=== PATIENT | male | born 1950 | race Caucasian/White ===

== ENCOUNTER 2018-08-23 20:35 | Inpatient (IN) | payer BC, MEDICARE, OTHER ==
[2018-08-23 21:03] LABS: Hemoglobin 7.1 g/dL (14.0-18.0); Mean Corpuscular HGB CONC 33.3 g/dL (32.0-36.0); Mean Corpuscular Hemoglobin 33.8 pg (27.0-31.0); Mean Platelet Volume 8.2 fL (7.4-10.4); Platelet Count 314 thou/uL (130-400); RBC Distribution Width 13.7 % (11.5-14.5); Red Blood Cell (RBC) Count 2.11 mill/uL (4.70-6.10); White Blood Cell (WBC) Count 16.6 thou/uL (4.8-10.8)
[2018-08-23 21:17] LABS: ALT (SGPT) 30 U/L (8-55); AST (SGOT) 21 U/L (5-34); Albumin 3.4 g/dL (3.4-4.8); Alkaline Phosphatase 141 U/L (40-150); Anion Gap 17 mmol/L (10-20); BUN (Urea Nitrogen) 76 mg/dL (8.4-25.7); Bilirubin, Total 0.3 mg/dL (0.2-1.2); Calc. Creatinine Clearance 0 mL/min (70-130); Calcium 9.4 mg/dL (7.8-10.44); Carbon Dioxide 23 mmol/L (23-31); Chloride 103 mmol/L (98-107); Estimated GFR-MDRD 20; Glucose 78 mg/dL (80-115); Potassium 4.5 mmol/L (3.5-5.1); Protein, Total 6.4 g/dL (5.8-8.1); Sodium 138 mmol/L (136-145)
[2018-08-23 21:25] LABS: Band 1 % (5-11); Hypochromia SLIGHT = 6-15 cells (100X) (0-5/hpf); Lymphocytes 11 % (21-51); MDiff Complete? YES; Macrocytosis SLIGHT = 6-15 cells (100X) (0-5/hpf); Monocytes 7 % (0-10); Neutrophil 81 % (42-75); Nucleated RBC 1 % (0); Platelet Morphology Comment Appears Adequate
[2018-08-23 21:54] LABS: INR-International Normal Ratio 1.1; PTT 25.7 SEC (22.9-36.1)
[2018-08-23 22:07] LABS: Iron 106 ug/dL (65-175); Iron Binding Capacity, Total 366 mcg/dL (261-462)
[2018-08-23] MEDS ORDERED: Ondansetron PF 4 MG/2 ML Vial IVP PRN (23:35)
[2018-08-23] MEDS ORDERED: Zolpidem Tartrate 5 MG TAB PO PRN (23:35)
[2018-08-23] MEDS ORDERED: HumaLOG 300 UNITS/3 ML VIAL SC PRN (23:44)
[2018-08-23] MEDS ORDERED: Dextrose 50% Abboject 50 ML SYRINGE SLOW IVP PRN (23:44)
[2018-08-23] MEDS ORDERED: Dextrose 5% in Water 1,000 ML IV PRN (23:44)
[2018-08-24] MEDS: Pantoprazole 80 MG in Sodium Chloride 0.9% 100 ML IVP SCH ×2 (00:17→22:03)
[2018-08-24 01:22] LABS: Hemoglobin 8.2 g/dL (14.0-18.0)
--- NOTE | 2018-08-24 01:50 | CON ---
DATE OF CONSULTATION: 08/23/2018 CHIEF COMPLAINT: Weakness, dizziness, blood in the stool. HISTORY OF PRESENT ILLNESS: Mr. Goldsmith is a 68-year-old man, who woke up early Monday morning and had initially brown liquidy stool and then multiple red to black bloody stools. He had no abdominal pain with that. The next day, Monday he had no bowel movements. Monday, he had 2 black bloody stools and today he has had none. However, today he started feeling more dizzy and lightheaded and he came to the emergency room for further care. He is found to have hypotension. He was given IV fluids and is being transfused. He has had no chest pain or shortness of breath. Weight has been stable. He had a GI bleed from bleeding ulcer around 6 years ago. He had an EGD and then 2 months later he had another EGD for repeat bleeding. He had a colonoscopy 2 or 3 years ago with a few polyps removed. PAST MEDICAL HISTORY: Hypertension, hyperlipidemia, diabetes mellitus, peptic ulcer disease, coronary artery disease, gout. PAST SURGICAL HISTORY: Coronary artery bypass graft and upper and lower endoscopies. FAMILY HISTORY: Negative for GI malignancy. SOCIAL HISTORY: No alcohol, tobacco, or drugs. ALLERGIES: NO KNOWN DRUG ALLERGIES. HOME MEDICATIONS: 1. Levemir. 2. NovoLog. 3. Tramadol. 4. Atorvastatin. 5. Furosemide. 6. Losartan. 7. Omeprazole. 8. Iron. 9. Metoprolol. 10. Niacin. 11. Multiple vitamin. 12. Aspirin 325 mg daily. REVIEW OF SYSTEMS: Negative x10 systems reviewed except as stated in the history of present illness. PHYSICAL EXAMINATION: VITAL SIGNS: Blood pressure 104/50s. Pulses in the 70s. He is afebrile. GENERAL: He is pale, in no acute distress. Alert and oriented x3. He is obese. HEENT: Eyes have no scleral icterus. Oropharynx is clear without lesions. No cervical or supraclavicular lymphadenopathy. LUNGS: Clear to auscultation bilaterally. HEART: Regular rate and rhythm without murmur. ABDOMEN: Soft, nontender, and nondistended. Bowel sounds are present. EXTREMITIES: Trace lower extremity edema. LABORATORY DATA: White blood cell count 16.6, hemoglobin 7.1, MCV 102, platelets 314. INR 1.1. Creatinine 3.17 with a BUN of 76. Iron 106, TIBC 366, ferritin 92, bilirubin 0.3, AST 21, ALT 30, alkaline phosphatase 141, albumin 3.4. IMPRESSION: 1. Macrocytic anemia. This is associated with black stools and melena by rectal exam in the ER now. He has a history of a peptic ulcer bleed in the past. He has been on omeprazole 40 mg daily and I would not expect him to form a new ulcer on that; however, still the presentation is most consistent with upper gastrointestinal bleed. 2. Anemia of acute blood loss. 3. Acute renal failure. RECOMMENDATIONS: 1. IV fluids and blood transfusion. 2. Follow trend of the creatinine. 3. We will schedule for upper endoscopy tomorrow. 4. Proton pump inhibitor drip. Job ID: [id number]
--- NOTE | 2018-08-24 02:34 | PDOC.EVN ---
Event Note - Event Note Event Note: H&P #[id number]
--- NOTE | 2018-08-24 02:56 | HP ---
CHIEF COMPLAINT: Weakness and GI bleed. HISTORY OF PRESENT ILLNESS: This is a 68-year-old male, who woke up in the morning complaining of black tarry stools. States that he has had an incident in the past approximately six or seven years ago, had an EGD two months prior as well at that time and then another colonoscopy two to three years ago with polyps removed. The patient states the stools turned significantly black and tarry. The patient of note was found to have a hemoglobin at the point of time of evaluation in the ER of 7.1, and GI evaluation had been completed at that time. The plan was for the patient to be transfused 1 unit of blood. The patient stated that he felt weak, otherwise he did not have any other issues or complaints. The patient did state that he has had a CABG done in the past, hyperlipidemia, hypertension, diabetes mellitus type 2. 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 He also has a GI doctor in [place]. The patient otherwise states that he feels well after the blood transfusion. Denies any nausea, vomiting, diarrhea, constipation, chest pain, fevers, or shortness of breath. The patient is seen and examined in the ER. No associated symptoms. No alleviating or aggravating factors. Daughter in-law and at bedside. All questions were answered. ALLERGIES: NO KNOWN DRUG ALLERGIES. HOME MEDICATIONS: See MAR. FAMILY HISTORY: Positive for hypertension and diabetes mellitus. PAST MEDICAL HISTORY: Positive for hypertension, diabetes, hyperlipidemia, peptic ulcer disease, coronary artery disease, gout, CABG. SOCIAL HISTORY: Nondrinker, nonsmoker. REVIEW OF SYSTEMS: All systems reviewed. Pertinent positives in HPI, otherwise negative. PHYSICAL EXAMINATION: VITAL SIGNS: Blood pressure was 128/88, respiratory rate of 18, O2 saturations 98% on room air, temperature of 98. GENERAL: The patient is lying in bed, obese, no acute distress. HEENT: Pupils equal, round, and reactive to light and accommodation. Extraocular muscles intact. Oral cavity moist and pink. CARDIOVASCULAR: Regular rate and rhythm. S1, S2. No murmurs, rubs, or gallops appreciated. RESPIRATORY: Clear to auscultation bilaterally. No increase in AP diameter. No respiratory distress. Abdomen: Rotund. Positive bowel sounds. Soft, nontender, nondistended. EXTREMITIES: Trace pitting edema. 2+ peripheral pulses. No cyanosis or clubbing noted. NEUROLOGICAL: Cranial nerves 2 through 12 intact. Oral cavity moist and pink. LABORATORY DATA: CBC; WBC count of 16, hemoglobin of 7.1. PT and INR normal. Chemistry is normal except for a creatinine of 3.17 and a BUN of 76. ASSESSMENT: 1. Gastrointestinal bleed. 2. Hypertension. 3. Hyperlipidemia. 4. Acute kidney injury on chronic kidney disease versus chronic kidney disease. 5. Diabetes mellitus type 2. 6. Coronary artery disease. PLAN: At this point in time, we will admit the patient to Internal Medicine Team, consults to Cardiology, GI as well as Nephrology. We will likely continue with aspirin given his significant coronary artery disease, however, we will not further anticoagulate the patient at this point in time. We will use SCDs for GI and DVT prophylaxis. We will provide the patient 1 unit of blood. Start Zosyn for the elevated WBC count with concern for possible infectious process going on in the abdomen. Blood cultures have been ordered and pending. The patient wishes to remain a full code. We will await subspecialist's input at this point in time. Case and plan were discussed with the patient, his , as well as his daughter in-law at length. They understand and agree with this plan. Job ID: [id number]
[2018-08-24 03:09] LABS: Mean Corpuscular HGB CONC 33.2 g/dL (32.0-36.0); Mean Corpuscular Hemoglobin 33.1 pg (27.0-31.0); Mean Corpuscular Volume 99.5 fL (78.0-98.0); Mean Platelet Volume 8.1 fL (7.4-10.4); Platelet Count 283 thou/uL (130-400); RBC Distribution Width 15.1 % (11.5-14.5); Red Blood Cell (RBC) Count 2.13 mill/uL (4.70-6.10); White Blood Cell (WBC) Count 16.4 thou/uL (4.8-10.8)
[2018-08-24 03:25] LABS: Band 1 % (5-11); Hypochromia SLIGHT = 6-15 cells (100X) (0-5/hpf); Lymphocytes 15 % (21-51); MDiff Complete? YES; Monocytes 5 % (0-10); Neutrophil 79 % (42-75); Platelet Morphology Comment Appears Adequate; Polychromasia SLIGHT = 2-3 cells (100X) (0-2/hpf)
[2018-08-24 03:43] LABS: Anion Gap 14 mmol/L (10-20); BUN (Urea Nitrogen) 78 mg/dL (8.4-25.7); Calc. Creatinine Clearance 0 mL/min (70-130); Calcium 9.2 mg/dL (7.8-10.44); Carbon Dioxide 24 mmol/L (23-31); Chloride 104 mmol/L (98-107); Estimated GFR-MDRD 20; Glucose 104 mg/dL (80-115); Potassium 4.7 mmol/L (3.5-5.1); Sodium 137 mmol/L (136-145)
[2018-08-24] MEDS: Piperacillin/Tazobactam 3.375 GM in Sodium Chloride 0.9% 100 ML IVPB SCH ×4 (05:05→22:19)
[2018-08-24] MEDS ORDERED: Aspirin 81 mg Enteric Coated Tablet PO SCH (09:00)
[2018-08-24 10:18] LABS: Hemoglobin 7.6 g/dL (14.0-18.0)
--- NOTE | 2018-08-24 11:23 | CT ---
CT OF THE ABDOMEN AND PELVIS WITHOUT CONTRAST: Date: 08/24/18 COMPARISON: None. HISTORY: Rectal bleeding since 7:00 Monday morning. Associated dizziness and diffuse abdominal pain. TECHNIQUE: Multiple contiguous axial images were obtained in a CT of the abdomen and pelvis without contrast. Co tylor reformats were performed. FINDINGS: The liver, gallbladder, kidneys, adrenal glands, spleen, and pancreas are unremarkable. No free air, free fluid, or stranding changes are seen in the abdomen or pelvis. Atherosclerotic calcifications are seen in the aorta. No abdominal or pelvic lymphadenopathy seen. Th e large and small bowel are unremarkable. The appendix is normal. There is stranding in the lower abdominal wall, likely from recent injections. Degenerative changes a re seen in the spine. The visualized inferior thorax is unremarkable. IMPRESSION: No evidence of acute intra-abdominal/pelvic abnormality. POS: [facility]
[2018-08-24] MEDS: Sodium Chloride 0.9% 1,000 ML IV SCH ×2 (11:30→22:03)
[2018-08-24] MEDS ORDERED: ePHEDrine 50 MG/ML VIAL ONE (12:39)
[2018-08-24] MEDS ORDERED: PROPOFOL 200 MG/20 ML VIAL ONE (12:39)
[2018-08-24 13:28] LABS: Hemoglobin 7.4 g/dL (14.0-18.0)
--- NOTE | 2018-08-24 14:36 | PDOC.PN ---
- Subjective Encounter Start Date: 08/24/18 Encounter Start Time: 14:35 Subjective: feels weak,1 red BM this morning.no abd pain/vomiting - Objective Resuscitation Status - Order Detail: 08/23/18 23:35 Resuscitation Status Routine Resuscitation Status: FULL: Full Resuscitation Discussed with: patient REAGAN Reviewed: Yes Result Diagrams: 08/24/18 13:15 08/24/18 02:57 Additional Labs: Accuchecks 08/24/18 09:02 POC Glucose 148 H Laboratory Tests 08/23/18 08/24/18 08/24/18 20:46 01:14 02:57 Hgb 7.1 L 8.2 L 7.0 L 08/24/18 08/24/18 10:07 13:15 Hgb 7.6 L 7.4 L Radiology Reviewed by me: Yes (CT A/P-no acute changes) Phys Exam - Physical Examination Constitutional: NAD pale,uncomfortable HEENT: PERRLA, moist MMs, sclera anicteric, oral pharynx no lesions Neck: no nodes, no JVD, supple, full ROM Respiratory: no wheezing, no rales, no rhonchi Cardiovascular: RRR, no significant murmur Gastrointestinal: soft, non-tender, no distention, positive bowel sounds Musculoskeletal: no edema, pulses present Neurological: non-focal, normal sensation, moves all 4 limbs Psychiatric: normal affect, A&O x 3 Dx/Plan (1) GI bleed Code(s): K92.2 - GASTROINTESTINAL HEMORRHAGE, UNSPECIFIED Status: Acute (2) Blood loss anemia Code(s): D50.0 - IRON DEFICIENCY ANEMIA SECONDARY TO BLOOD LOSS (CHRONIC) Status: Acute (3) TIERNEY (acute kidney injury) Code(s): N17.9 - ACUTE KIDNEY FAILURE, UNSPECIFIED Status: Acute (4) HTN (hypertension) Code(s): I10 - ESSENTIAL (PRIMARY) HYPERTENSION Status: Chronic (5) DM2 (diabetes mellitus, type 2) Status: Chronic - Plan DVT proph w/SCDs serail H/H.s/p PRBC transfusion.EGD today.PPI drip. -: start IVF.monitor vitals.Ok to tele insted of IMCU.HD stable -: likely UGIB due to ASA use.stopped. -: Ct ruled out ac diveticulitis/abdominal Infection.empiric zosyn.trend WBC -: no h/o CKD.TIERNEY likely d/y sever dehydration & hypovolemia.IVF.monitor * .nephrology consulted. avoid nephrotoxins * am labs Review of Systems - Review of Systems Constitutional: weakness. negative: fever, chills, sweats, malaise, other Respiratory: negative: Cough, Dry, Shortness of Breath, Hemoptysis, SOB with Excertion, Pleuritic Pain, Sputum, Wheezing Cardiovascular: negative: chest pain, palpitations, orthopnea, paroxysmal nocturnal dyspnea, edema, light headedness, other Gastrointestinal: Melena, Hematochezia. negative: Nausea, Vomiting, Abdominal Pain, Diarrhea, Constipation, Other Genitourinary: negative: Dysuria, Frequency, Incontinence, Hematuria, Retention , Other Musculoskeletal: negative: Neck Pain, Shoulder Pain, Arm Pain, Back Pain, Hand Pain, Leg Pain, Foot Pain, Other Neurological: negative: Weakness, Numbness, Incoordination, Change in Speech, Confusion, Seizures, Other - Medications/Allergies Allergies/Adverse Reactions: Allergies Allergy/AdvReac Type Severity Reaction Status Date / Time No Known Drug Allergies Allergy Verified 08/23/18 23:03 Medications: Current Medications Atorvastatin Calcium (Lipitor) 40 mg PO HS [facility] Dextrose/Water (Dextrose 50%) 25 gm SLOW IVP PRN PRN PRN Reason: Hypoglycemia Glucagon (Glucagon) 1 mg IM PRN PRN PRN Reason: Hypoglycemia Pantoprazole Sodium 80 mg/ (Sodium Chloride) 100 mls @ 10 mls/hr IVP INF [facility] Last Admin: 08/24/18 00:17 Dose: 100 mls Dextrose/Water (D5w) 1,000 mls @ 0 mls/hr IV .Q0M PRN PRN Reason: Hypoglycemia Piperacillin Sod/Tazobactam (Sod 3.375 gm/ Sodium Chloride) 100 mls @ 200 mls/ hr IVPB Q8H [facility] Last Admin: 08/24/18 10:00 Dose: 100 mls Sodium Chloride (Normal Saline 0.9%) 1,000 mls @ 100 mls/hr IV .Q10H [facility] Last Admin: 08/24/18 11:30 Dose: 1,000 mls Insulin Human Lispro (Humalog) 0 units SC .MILD SLIDING SCALE PRN PRN Reason: Mild Correctional Scale Insulin Human Lispro (Humalog) 0 units SC .BEDTIME SLIDING SC PRN PRN Reason: Bedtime Correctional Scale Ondansetron HCl (Zofran) 4 mg IVP Q6H PRN PRN Reason: Nausea/Vomiting Sodium Chloride (Flush - Normal Saline) 10 ml IVF Q12HR PRN PRN Reason: Saline Flush Zolpidem Tartrate (Ambien) 5 mg PO HSPRN PRN PRN Reason: Insomnia
[2018-08-24] MEDS ORDERED: Ketamine 50 MG/ML (10ML VIAL) ONE (16:08)
[2018-08-24] MEDS ORDERED: Ondansetron HCl/PF 4 MG/2 ML Vial IVP PRN (16:45)
[2018-08-24] MEDS ORDERED: Promethazine HCl 25 MG/ML VIAL IM PRN (16:45)
[2018-08-24] MEDS ORDERED: Promethazine HCl 25 MG/ML VIAL SLOW IVP PRN (16:45)
--- NOTE | 2018-08-24 19:29 | OP ---
DATE OF PROCEDURE: 08/24/2018 PROCEDURES PERFORMED: Esophagogastroduodenoscopy with biopsy and control of hemorrhage. PREOPERATIVE DIAGNOSES: Gastrointestinal bleed and severe anemia of acute blood loss. DESCRIPTION OF PROCEDURE: Informed consent was obtained from the patient. He was sedated with total intravenous anesthesia. The bite block was placed and the endoscope was advanced easily to the second portion of the duodenum and retroflexion was performed in the stomach. The esophagus was normal. The GE junction was normal. The stomach had a 5 mm erosion in the proximal antrum. This did not appear to be an obvious bleeding source; however, there was a red spot in the base of it. I cauterized this with a 7-Belizean Gold probe at 20 galicia with good hemostasis confirmed. Biopsies were obtained from the stomach to rule out H pylori in light of the gastric erosion and past history of peptic ulcer disease. The pylorus and first and second portions of the duodenum were normal. IMPRESSION: 1. Gastric antral erosion, measuring 5 mm. This was shallow, but it was somewhat protruding underneath and had a small red spot in the center and this was cauterized with a 10-Belize[place] Gold probe with good hemostasis confirmed. I am certainly not convinced this is the definite bleeding source. Gastric biopsies were obtained to rule out H pylori. 2. Otherwise normal EGD. RECOMMENDATIONS: 1. Await histopathology. 2. Colonoscopy tomorrow. Job ID: [id number]
[2018-08-24] MEDS ORDERED: Insulin Glargine 10 UNITS in Pre-Filled Syringe 1 EACH SC SCH (21:00)
[2018-08-24] MEDS: Atorvastatin Calcium 40 MG TAB PO SCH (22:03)
[2018-08-24] MEDS: HumaLOG 300 UNITS/3 ML VIAL SC PRN (22:59)
[2018-08-25 01:39] LABS: Bilirubin Negative (Negative); Blood, Urine Trace (Negative); Clarity CLEAR (Clear); Glucose, Urine (Dipstick) Negative (Negative); Leukocyte Negative (Negative); Nitrite Negative (Negative); Protein, Urine (Dipstick) 30 mg/dL (Neg-Trace); Specific Gravity, Urine 1.016 (1.002-1.036); Urobilinogen 0.2 mg/dL (0.2-1.0)
[2018-08-25 01:42] LABS: Bacteria/HPF None Seen HPF (None Seen); Hyaline Casts/LPF 4-6 HYALINE CAST LPF (0-3 Hyaline); Pathc Cast-AUWi Flag 0.81 (0-2.49); RBC/HPF 0-3 HPF (0-3)
[2018-08-25 01:43] LABS: Oval Fat Bodies/HPF None Seen HPF (None Seen); Renal Epithelial None Seen HPF (0-3); Sperm/HPF None Seen HPF (None Seen); Transitional Epithelial NONE SEEN HPF (0-3); Trichomonas/HPF None Seen HPF (None Seen); Yeast-All Forms None Seen HPF (None Seen)
[2018-08-25 01:44] LABS: Urine Culture Reflex No No
[2018-08-25] MEDS: Piperacillin/Tazobactam 3.375 GM in Sodium Chloride 0.9% 100 ML IVPB SCH ×4 (04:10→21:36)
[2018-08-25] MEDS ORDERED: GoLYTELY 4,000 ml Bottle PO SCH ×2 (06:30→12:30)
[2018-08-25] MEDS: Pantoprazole 80 MG in Sodium Chloride 0.9% 100 ML IVP SCH (07:36)
[2018-08-25 11:16] VITALS: BMI 45.9
[2018-08-25] MEDS ORDERED: Cyclobenzaprine 10 MG TAB PO SCH (12:15)
[2018-08-25 12:16] LABS: Hemoglobin 7.8 g/dL (14.0-18.0)
[2018-08-25 12:30] LABS: Anion Gap 23 mmol/L (10-20); BUN (Urea Nitrogen) 49 mg/dL (8.4-25.7); Calc. Creatinine Clearance 54 mL/min (70-130); Carbon Dioxide 16 mmol/L (23-31); Chloride 102 mmol/L (98-107); Estimated GFR-MDRD 26; Glucose 394 mg/dL (80-115); Potassium 4.6 mmol/L (3.5-5.1); Sodium 136 mmol/L (136-145)
[2018-08-25] MEDS ORDERED: HumaLOG 300 UNITS/3 ML VIAL SC SCH ×2 (12:30→17:45)
[2018-08-25] MEDS: traMADol HCl 50 MG TAB PO PRN ×2 (12:42→21:46)
[2018-08-25] MEDS: Lidocaine 5% Patch TD SCH (12:44)
[2018-08-25] MEDS: Sodium Chloride 0.9% 1,000 ML IV SCH (12:49)
[2018-08-25] MEDS ORDERED: Morphine 2 MG/ML SYRINGE SLOW IVP SCH (13:45)
--- NOTE | 2018-08-25 14:28 | PDOC.PN ---
- Subjective Encounter Start Date: 08/25/18 Encounter Start Time: 14:26 Subjective: c/o severe arm cramps in left arm from elbow down -: no SOB/CP -: LOOSE NON BLODDY STOOLS ON GOLYTLE - Objective Resuscitation Status - Order Detail: 08/23/18 23:35 Resuscitation Status Routine Resuscitation Status: FULL: Full Resuscitation Discussed with: patient REAGAN Reviewed: Yes Vital Signs & Weight: Vital Signs (12 hours) Temp Pulse Resp BP BP Pulse Ox 08/25/18 13:42 163/72 H 08/25/18 12:51 97.8 F 109 H 18 151/65 H 99 08/25/18 08:08 97.1 F L 96 18 138/63 100 08/25/18 04:00 97.7 F 99 16 127/56 L 96 08/25/18 03:38 98 Weight Admit Weight 299 lb 8 oz Weight 302 lb 1.6 oz I&O: 08/24/18 08/25/18 08/26/18 06:59 06:59 06:59 Intake Total 1120 Output Total 1375 Balance -255 Result Diagrams: 08/25/18 12:06 08/25/18 12:06 Additional Labs: Accuchecks 08/25/18 08/25/18 08/24/18 10:57 05:59 20:39 POC Glucose 356 H 303 H 248 H Radiology Reviewed by me: Yes (EGD-mild antral erosions.no overt bleed) Phys Exam - Physical Examination sitting up in bed w arm on table w pillow,umcomfortable HEENT: PERRLA, moist MMs, sclera anicteric, oral pharynx no lesions Neck: no nodes, no JVD, supple, full ROM Respiratory: no wheezing, no rales, no rhonchi Cardiovascular: RRR, no significant murmur Gastrointestinal: soft, non-tender, no distention, positive bowel sounds Musculoskeletal: no edema, pulses present no swelling,erythema or warmth to left arm. Neurological: non-focal, normal sensation, moves all 4 limbs Dx/Plan (1) GI bleed Code(s): K92.2 - GASTROINTESTINAL HEMORRHAGE, UNSPECIFIED Status: Acute (2) Blood loss anemia Code(s): D50.0 - IRON DEFICIENCY ANEMIA SECONDARY TO BLOOD LOSS (CHRONIC) Status: Acute Comment: H/H stable (3) TIERNEY (acute kidney injury) Code(s): N17.9 - ACUTE KIDNEY FAILURE, UNSPECIFIED Status: Acute (4) Metabolic acidosis Code(s): E87.2 - ACIDOSIS Status: Acute (5) HTN (hypertension) Code(s): I10 - ESSENTIAL (PRIMARY) HYPERTENSION Status: Chronic (6) DM2 (diabetes mellitus, type 2) Status: Chronic - Plan plan discussed w/ family, DVT proph w/SCDs EGD unremarakble.Colonoscopy today -: add prn tramadol and flexeril for pain w Lidocaine patch.likely spasm -: Hd stable -: monitor renal Fx -: change IVF to add Bicarb as now has metabolic acidosis.ISS w accuchecks * . Review of Systems - Review of Systems Constitutional: weakness, malaise. negative: fever, chills, sweats, other ENT: negative: Ear Pain, Ear Discharge, Nose Pain, Nose Discharge, Nose Congestion, Mouth Pain, Mouth Swelling, Throat Pain, Throat Swelling, Other Respiratory: negative: Cough, Dry, Shortness of Breath, Hemoptysis, SOB with Excertion, Pleuritic Pain, Sputum, Wheezing Cardiovascular: negative: chest pain, palpitations, orthopnea, paroxysmal nocturnal dyspnea, edema, light headedness, other Gastrointestinal: negative: Nausea, Vomiting, Abdominal Pain, Diarrhea, Constipation, Melena, Hematochezia, Other Genitourinary: negative: Dysuria, Frequency, Incontinence, Hematuria, Retention , Other Musculoskeletal: Hand Pain. negative: Neck Pain, Shoulder Pain, Arm Pain, Back Pain, Leg Pain, Foot Pain, Other Neurological: negative: Weakness, Numbness, Incoordination, Change in Speech, Confusion, Seizures, Other - Medications/Allergies Allergies/Adverse Reactions: Allergies Allergy/AdvReac Type Severity Reaction Status Date / Time No Known Drug Allergies Allergy Verified 08/23/18 23:03 Medications: Current Medications Atorvastatin Calcium (Lipitor) 40 mg PO HS [facility] Last Admin: 08/24/18 22:03 Dose: 40 mg Cyclobenzaprine HCl (Flexeril) 10 mg PO TID PRN PRN Reason: Muscle Spasm Dextrose/Water (Dextrose 50%) 25 gm SLOW IVP PRN PRN PRN Reason: Hypoglycemia Glucagon (Glucagon) 1 mg IM PRN PRN PRN Reason: Hypoglycemia Pantoprazole Sodium 80 mg/ (Sodium Chloride) 100 mls @ 10 mls/hr IVP INF [facility] Last Admin: 08/25/18 07:36 Dose: 100 mls Dextrose/Water (D5w) 1,000 mls @ 0 mls/hr IV .Q0M PRN PRN Reason: Hypoglycemia Piperacillin Sod/Tazobactam (Sod 3.375 gm/ Sodium Chloride) 100 mls @ 200 mls/ hr IVPB Q8H [facility] Last Admin: 08/25/18 12:42 Dose: 100 mls Sodium Bicarbonate 50 meq/ (Sodium Chloride) 1,050 mls @ 75 mls/hr IV .Q14H [facility] Insulin Human Lispro (Humalog) 0 units SC .MILD SLIDING SCALE PRN PRN Reason: Mild Correctional Scale Insulin Human Lispro (Humalog) 0 units SC .BEDTIME SLIDING SC PRN PRN Reason: Bedtime Correctional Scale Last Admin: 08/24/18 22:59 Dose: 2 unit Lidocaine (Lidoderm 5% Patch) 1 patch TD 1300 [facility] Last Admin: 08/25/18 12:44 Dose: 1 patch Miscellaneous Medication (Lidocaine Patch Removal) 1 each TOP 0100 [facility] Morphine Sulfate (Morphine) 2 mg SLOW IVP NOW [facility] Stop: 08/25/18 15:00 Last Admin: 08/25/18 13:45 Dose: 2 mg Ondansetron HCl (Zofran) 4 mg IVP Q6H PRN PRN Reason: Nausea/Vomiting Polyethylene Glycol/Electrolytes (Golytely) 2,000 ml PO NOW [facility] Stop: 08/25/18 18:00 Last Admin: 08/25/18 13:33 Dose: 2,000 ml Sodium Chloride (Flush - Normal Saline) 10 ml IVF Q12HR PRN PRN Reason: Saline Flush Tramadol HCl (Ultram) 100 mg PO Q8H PRN PRN Reason: Moderate to Severe Pain (6-10) Last Admin: 08/25/18 12:42 Dose: 100 mg Zolpidem Tartrate (Ambien) 5 mg PO HSPRN PRN PRN Reason: Insomnia
[2018-08-25] MEDS ORDERED: ePHEDrine 50 MG/ML VIAL ONE (14:32)
[2018-08-25] MEDS ORDERED: PROPOFOL 200 MG/20 ML VIAL ONE (14:32)
[2018-08-25] MEDS ORDERED: PHENYLEPHRINE-NS 100 MCG/ML 10 ML SYRINGE ONE (14:32)
[2018-08-25] MEDS: Sodium Bicarbonate 50 MEQ in Sodium Chloride 0.45% 1,000 ML IV SCH ×2 (15:12→21:36)
--- NOTE | 2018-08-25 15:22 | PRG ---
DATE OF SERVICE: 08/25/2018 SUBJECTIVE: Patient was seen and examined at bedside and overnight events noted. Patient denies any shortness of breath or chest pain or palpitation. No history of nausea or vomiting or diarrhea or fever or chills or cramps. OBJECTIVE: GENERAL: This is a well-built male, in no apparent distress. VITAL SIGNS: Temperature 97.9, heart rate , blood pressure 151/65. HEENT: Atraumatic, normocephalic. Oral mucosa is moist. NECK: Supple. CARDIOVASCULAR: S1, S2 heard. Rate and rhythm regular. RESPIRATORY: Clear to auscultation. GASTROINTESTINAL: Abdomen is soft. MUSCULOSKELETAL: No tenderness. No edema. DERMATOLOGIC: No skin rash. NEUROLOGIC: Alert and awake and oriented X3. No focal neurologic deficits. Moving all the extremities. PSYCHIATRIC: Mood and affect normal. LABORATORY DATA: Potassium 4.6, BUN is 49, creatinine is 2.05. ASSESSMENT AND PLAN: 1. Acute kidney injury, renal function is getting better. 2. Edema, controlled. 3. Hypertension. 4. Anemia, rule out bleed. 5. Avoid nephrotoxins. 6. Hydration as tolerated. Job ID: [id number]
[2018-08-25] MEDS ORDERED: Sodium Chloride 0.9% 10 ML ONE ×2 (18:32→19:48)
[2018-08-25] MEDS ORDERED: Fentanyl 100 MCG/2 ML VIAL ONE (19:40)
--- NOTE | 2018-08-25 21:05 | OP ---
DATE OF PROCEDURE: 08/25/2018 PROCEDURE PERFORMED: Colonoscopy with control of hemorrhage. PREOPERATIVE DIAGNOSIS: Gastrointestinal bleed. DESCRIPTION OF PROCEDURE: Informed consent was obtained from the patient. He was sedated with total intravenous anesthesia. The rectal exam was performed and was normal. The preparation quality was adequate. There were a few small areas of solid stool that was retained between the couple of folds in the ascending colon. The colonoscope was advanced to the cecum without difficulty. The ileocecal valve and appendiceal orifice were clearly identified. There was a 6 mm vascular ectasia in the cecum a couple of centimeters from the appendiceal orifice. This was cauterized with argon plasma coagulation. Good hemostasis was confirmed. There was moderate diverticulosis in the left colon. The remainder of the colonic mucosa was normal. Retroflex views in the rectum were normal. IMPRESSION: 1. 6 mm vascular ectasia in the cecum, which did bleed when touched with APC probe. This was cauterized with argon plasma coagulation with good hemostasis confirmed. 2. Moderate left-sided diverticulosis. 3. Otherwise normal colonoscopy. RECOMMENDATIONS: 1. Advance diet. 2. Anticipate discharge home in the morning. Job ID: [id number]
[2018-08-25] MEDS: Atorvastatin Calcium 40 MG TAB PO SCH (21:36)
[2018-08-25] MEDS: HumaLOG 300 UNITS/3 ML VIAL SC PRN (21:36)
[2018-08-25] MEDS: Cyclobenzaprine 10 MG TAB PO PRN (21:43)
[2018-08-26] MEDS: Lidocaine Patch Removal 1 EACH TOP SCH (01:35)
[2018-08-26] MEDS: Cyclobenzaprine 10 MG TAB PO PRN ×2 (05:49→21:36)
[2018-08-26] MEDS: traMADol HCl 50 MG TAB PO PRN ×2 (05:49→21:37)
[2018-08-26] MEDS: Piperacillin/Tazobactam 3.375 GM in Sodium Chloride 0.9% 100 ML IVPB SCH (05:50)
[2018-08-26 05:51] LABS: Anion Gap 13 mmol/L (10-20); BUN (Urea Nitrogen) 34 mg/dL (8.4-25.7); Calc. Creatinine Clearance 63 mL/min (70-130); Calcium 8.5 mg/dL (7.8-10.44); Carbon Dioxide 25 mmol/L (23-31); Chloride 101 mmol/L (98-107); Estimated GFR-MDRD 30; Glucose 343 mg/dL (80-115); Potassium 3.7 mmol/L (3.5-5.1); Sodium 135 mmol/L (136-145)
[2018-08-26] MEDS ORDERED: Dextrose 5% in Water 1,000 ML IV PRN (08:57)
[2018-08-26] MEDS ORDERED: Dextrose 50% Abboject 50 ML SYRINGE SLOW IVP PRN (08:57)
[2018-08-26] MEDS ORDERED: HumaLOG 300 UNITS/3 ML VIAL SC PRN (08:57)
[2018-08-26] MEDS ORDERED: traMADol HCl 50 MG TAB PO PRN (08:59)
[2018-08-26] MEDS ORDERED: Non-Formulary Item 1 EACH (Insulin Detemir [Levemir] 45 UNIT) SQ SCH (09:00)
[2018-08-26] MEDS ORDERED: Sodium Chloride 0.9% 1,000 ML IV SCH (09:00)
[2018-08-26] MEDS ORDERED: NIACIN 500 MG PO SCH (09:00)
[2018-08-26] MEDS ORDERED: FERROUS SULFATE 65 MG PO SCH (09:00)
[2018-08-26] MEDS: Ferrous Sulfate 325 MG TAB PO SCH (09:41)
[2018-08-26] MEDS: Metoprolol Tartrate 100 MG TAB PO SCH ×2 (09:41→20:19)
[2018-08-26] MEDS ORDERED: INSULIN ASPART 60 UNIT SQ SCH (12:00)
[2018-08-26] MEDS: HumaLOG 300 UNITS/3 ML VIAL SC SCH ×2 (12:12→17:49)
[2018-08-26] MEDS: Lidocaine 5% Patch TD SCH (12:25)
--- NOTE | 2018-08-26 12:40 | PDOC.PN ---
- Subjective Encounter Start Date: 08/26/18 Encounter Start Time: 12:38 Subjective: feels much better.left arm cramps improved -: no more blood per rectum.wants to go home - Objective Resuscitation Status - Order Detail: 08/23/18 23:35 Resuscitation Status Routine Resuscitation Status: FULL: Full Resuscitation Discussed with: kanchan KIRK Reviewed: Yes Vital Signs & Weight: Vital Signs (12 hours) Temp Pulse Resp BP BP Pulse Ox 08/26/18 08:00 97.5 F L 90 18 116/58 L 93 L 08/26/18 04:46 97 08/26/18 04:00 98.9 F 88 14 146/63 H 94 L Weight Admit Weight 299 lb 8 oz Weight 302 lb 1.6 oz I&O: 08/25/18 08/26/18 08/27/18 06:59 06:59 06:59 Intake Total 1120 6720 Output Total 1375 450 Balance -255 6270 Result Diagrams: 08/25/18 12:06 08/26/18 04:37 Additional Labs: Accuchecks 08/26/18 08/26/18 08/25/18 10:54 05:36 20:34 POC Glucose 463 H 357 H 355 H 08/25/18 08/25/18 18:28 16:43 POC Glucose 392 H 416 H Microbiology 08/24/18 02:57 Venous blood - Right Hand Blood Culture - Preliminary NO GROWTH AT 48 HOURS 08/24/18 02:57 Venous blood - Left Hand Blood Culture - Preliminary NO GROWTH AT 48 HOURS Laboratory Tests 08/23/18 08/23/18 08/24/18 20:46 20:46 01:14 Hgb 7.1 L 8.2 L Creatinine 3.17 H 08/24/18 08/24/18 08/24/18 02:57 02:57 10:07 Hgb 7.0 L 7.6 L Creatinine 3.08 H 08/24/18 08/25/18 08/25/18 13:15 12:06 12:06 Hgb 7.4 L 7.8 L Creatinine 2.51 H Phys Exam - Physical Examination Constitutional: NAD HEENT: PERRLA, moist MMs, sclera anicteric, oral pharynx no lesions Neck: no nodes, no JVD, supple, full ROM Respiratory: no wheezing, no rales, no rhonchi Cardiovascular: RRR, no significant murmur Gastrointestinal: soft, non-tender, no distention, positive bowel sounds Musculoskeletal: no edema, pulses present Neurological: non-focal, normal sensation, moves all 4 limbs Psychiatric: normal affect, A&O x 3 Skin: no rash Dx/Plan (1) GI bleed Code(s): K92.2 - GASTROINTESTINAL HEMORRHAGE, UNSPECIFIED Status: Acute Comment: 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.s/p cauterization.on PPI (2) Blood loss anemia Code(s): D50.0 - IRON DEFICIENCY ANEMIA SECONDARY TO BLOOD LOSS (CHRONIC) Status: Acute Comment: H/H stable (3) TIERNEY (acute kidney injury) Code(s): N17.9 - ACUTE KIDNEY FAILURE, UNSPECIFIED Status: Acute (4) Metabolic acidosis Code(s): E87.2 - ACIDOSIS Status: Acute (5) HTN (hypertension) Code(s): I10 - ESSENTIAL (PRIMARY) HYPERTENSION Status: Chronic (6) DM2 (diabetes mellitus, type 2) Status: Chronic - Plan DVT proph w/SCDs renal Fx better.will stop IVF as pt now has develping swelling -: was on Lasix,ARB and metfromin at home-will continue to hold these -: will DC home in am tomorrow if Cr and H/h better -: Hd stable.restart rest of the home meds as below -: am labs * .stop ABx as no clear indication of same Review of Systems - Review of Systems Constitutional: negative: fever, chills, sweats, weakness, malaise, other ENT: negative: Ear Pain, Ear Discharge, Nose Pain, Nose Discharge, Nose Congestion, Mouth Pain, Mouth Swelling, Throat Pain, Throat Swelling, Other Respiratory: negative: Cough, Dry, Shortness of Breath, Hemoptysis, SOB with Excertion, Pleuritic Pain, Sputum, Wheezing Cardiovascular: negative: chest pain, palpitations, orthopnea, paroxysmal nocturnal dyspnea, edema, light headedness, other Gastrointestinal: negative: Nausea, Vomiting, Abdominal Pain, Diarrhea, Constipation, Melena, Hematochezia, Other Genitourinary: negative: Dysuria, Frequency, Incontinence, Hematuria, Retention , Other Neurological: negative: Weakness, Numbness, Incoordination, Change in Speech, Confusion, Seizures, Other - Medications/Allergies Allergies/Adverse Reactions: Allergies Allergy/AdvReac Type Severity Reaction Status Date / Time No Known Drug Allergies Allergy Verified 08/23/18 23:03 Medications: Current Medications Cyclobenzaprine HCl (Flexeril) 10 mg PO TID PRN PRN Reason: Muscle Spasm Last Admin: 08/26/18 05:49 Dose: 10 mg Dextrose/Water (Dextrose 50%) 25 gm SLOW IVP PRN PRN PRN Reason: Hypoglycemia Ferrous Sulfate (Feosol) 325 mg PO DAILY [facility] Last Admin: 08/26/18 09:41 Dose: 325 mg Glucagon (Glucagon) 1 mg IM PRN PRN PRN Reason: Hypoglycemia Dextrose/Water (D5w) 1,000 mls @ 0 mls/hr IV .Q0M PRN PRN Reason: Hypoglycemia Insulin Glargine 45 units/ (Miscellaneous Medication) 0.45 mls @ 0 mls/hr SC [facility] Insulin Human Lispro (Humalog) 0 units SC .BEDTIME SLIDING SC PRN PRN Reason: Bedtime Correctional Scale Last Admin: 08/25/18 21:36 Dose: 5 unit Insulin Human Lispro (Humalog) 0 units SC .AGGRESSIVE SLIDING PRN PRN Reason: Aggressive Correctional Scale Insulin Human Lispro (Humalog) 60 units SC TID-WM [facility] Last Admin: 08/26/18 12:12 Dose: 60 units Lidocaine (Lidoderm 5% Patch) 1 patch TD 1300 [facility] Last Admin: 08/26/18 12:25 Dose: 1 patch Metoprolol Tartrate (Lopressor) 100 mg PO BID [facility] Last Admin: 08/26/18 09:41 Dose: 100 mg Miscellaneous Medication (Lidocaine Patch Removal) 1 each TOP 0100 [facility] Last Admin: 08/26/18 01:35 Dose: 1 each Niacin (Niaspan Er) 500 mg PO BID [facility] Last Admin: 08/26/18 09:41 Dose: 500 mg Ondansetron HCl (Zofran) 4 mg IVP Q6H PRN PRN Reason: Nausea/Vomiting Pantoprazole Sodium (Protonix) 40 mg PO DAILY [facility] Last Admin: 08/26/18 08:36 Dose: 40 mg Rosuvastatin Calcium (Crestor) 40 mg PO [facility] Sodium Chloride (Flush - Normal Saline) 10 ml IVF Q12HR PRN PRN Reason: Saline Flush Tramadol HCl (Ultram) 100 mg PO Q8H PRN PRN Reason: Moderate to Severe Pain (6-10) Last Admin: 08/26/18 05:49 Dose: 100 mg Tramadol HCl (Ultram) 100 mg PO Q8H PRN PRN Reason: Pain Zolpidem Tartrate (Ambien) 5 mg PO HSPRN PRN PRN Reason: Insomnia
--- NOTE | 2018-08-26 16:09 | PRG ---
DATE OF SERVICE: 08/26/2018 SUBJECTIVE: Mr. Goldsmith has no further overt bloody stool output. He has no abdominal pain. OBJECTIVE: VITAL SIGNS: Temperature 97.5, pulse 90, and blood pressure 116/58. GENERAL: He is in no acute distress. He is alert and oriented x3. He is up ambulating. LUNGS: Clear to auscultation bilaterally. HEART: Regular rate and rhythm without murmur. ABDOMEN: Soft, nontender, nondistended. Bowel sounds are present. IMPRESSION: 1. Anemia of acute blood loss. 2. 6 mm vascular ectasia cauterized in the colon yesterday. This was most likely bleeding source. 3. Left-sided diverticulosis. 4. Erosive gastritis. RECOMMENDATIONS: 1. Avoid NSAIDs. 2. Iron supplementation. 3. His creatinine is improving. 4. He has no further overt gastrointestinal bleeding. I will sign off for now, please call if GI can be of assistance. Job ID: [id number]
[2018-08-26] MEDS: Insulin Glargine 45 UNITS in Pre-Filled Syringe 1 EACH SC SCH (20:18)
[2018-08-26] MEDS: Rosuvastatin 20 MG TAB PO SCH (20:19)
--- NOTE | 2018-08-26 20:42 | PRG ---
DATE OF SERVICE: 08/26/2018 SUBJECTIVE: The patient was seen and examined at bedside and overnight events noted. The patient denies any shortness of breath or chest pain or palpitation. No history of nausea or vomiting or diarrhea or fever or chills or cramps. OBJECTIVE: GENERAL: This is a well-built male, in no apparent distress. VITAL SIGNS: Temperature 97.7, pulse 76, respiratory rate blood pressure 120/62. HEENT: Atraumatic, normocephalic. Oral mucosa is moist NECK: Supple. CARDIOVASCULAR: S1, S2 heard. Rate and rhythm regular. RESPIRATORY: Clear to auscultation. GASTROINTESTINAL: Abdomen is soft. MUSCULOSKELETAL: No tenderness. No edema. DERMATOLOGIC: No skin rash. NEUROLOGIC: Alert and awake and oriented X3. No focal neurologic deficits. Moving all the extremities. PSYCHIATRIC: Mood and affect normal. LABORATORY DATA: Potassium is 3.7, BUN is 34, creatinine is 2.1. ASSESSMENT AND PLAN: 1. Acute kidney injury. Renal function getting better. Okay to stop IV fluids. Monitor . 2. Edema, getting worse. Okay to stop IV fluids. 3. Hypertension. 4. Anemia. 5. Stop IV fluids and monitor. Avoid nephrotoxins. Job ID: [id number]
[2018-08-26] MEDS ORDERED: Non-Formulary Item 1 EACH (Rosuvastatin Calcium [Crestor] 40 MG) PO SCH (21:00)
[2018-08-27] MEDS: Lidocaine Patch Removal 1 EACH TOP SCH (01:57)
[2018-08-27 05:29] LABS: Hemoglobin 6.9 g/dL (14.0-18.0)
[2018-08-27 05:36] LABS: Anion Gap 8 mmol/L (10-20); BUN (Urea Nitrogen) 28 mg/dL (8.4-25.7); Calc. Creatinine Clearance 68 mL/min (70-130); Calcium 8.8 mg/dL (7.8-10.44); Carbon Dioxide 28 mmol/L (23-31); Chloride 101 mmol/L (98-107); Estimated GFR-MDRD 33; Glucose 115 mg/dL (80-115); Potassium 3.8 mmol/L (3.5-5.1); Sodium 133 mmol/L (136-145)
--- NOTE | 2018-08-27 07:32 | CON ---
DATE OF CONSULTATION: 08/24/2018 CONSULTING PHYSICIAN: Dr. Brooks. REASON FOR CONSULTATION: Acute kidney injury. REASON FOR ADMISSION: GI bleed. HISTORY OF PRESENT ILLNESS: This is a 68-year-old male with history of hypertension, who came to the hospital with GI bleed and was found to have elevated creatinine. His creatinine was found to be 3.1 on admission, no baseline creatinine available. No fever or chills. No chest pain. The patient was having some diarrhea. PAST MEDICAL HISTORY: Positive for hypertension, diabetes, hyperlipidemia, coronary artery disease, and CABG. PAST SURGICAL HISTORY: CABG. HOME MEDICATIONS: See the list. ALLERGIES: NO KNOWN DRUG ALLERGIES. SOCIAL HISTORY: No smoking, alcohol, or illicit drugs. FAMILY HISTORY: No history of any kidney disease. REVIEW OF SYSTEMS: CONSTITUTIONAL: Negative for weight loss or gain, ability to conduct usual activities. SKIN: Negative for rash, itching. EYES: Negative for double vision, pain. ENT/MOUTH: Negative for nose bleeding, neck stiffness, pain, tenderness. CARDIOVASCULAR: Negative for palpitations, dyspnea on exertion, orthopnea. RESPIRATORY: Negative for shortness of breath, wheezing, cough, hemoptysis, fever or night sweats. GASTROINTESTINAL: Negative for poor appetite, abdominal pain, heartburn, nausea, vomiting, constipation, or diarrhea. GENITOURINARY: Negative for urgency, frequency, dysuria, nocturia. MUSCULOSKELETAL: Negative for pain, swelling. NEUROLOGIC/PSYCHIATRIC: Negative for anxiety, depression. ALLERGY/IMMUNOLOGIC: Negative for skin rash, bleeding tendency. PHYSICAL EXAMINATION: GENERAL: Reveals a well-built male, in no apparent distress. VITAL SIGNS: Temperature 98.7, pulse 88, respiratory rate 18, and blood pressure 138/80. HEENT: Atraumatic and normocephalic. Oral mucosa is moist. NECK: Supple. CV: S1 and S2 heard. Rate and rhythm are regular. RESPIRATORY: Clear. GI: Abdomen is soft. MUSCULOSKELETAL: 1+ edema. DERMATOLOGIC: No skin rash. NEUROLOGIC: Alert and awake. PSYCHIATRIC: Normal mood and affect. LABORATORY DATA: Potassium 4.7, BUN is 78, and creatinine is 3.08. ASSESSMENT AND PLAN: 1. Acute kidney injury, most likely from volume depletion. Agree with hydration. Avoid nephrotoxins. Renally dose all medications. 2. Edema. We will follow. 3. Hypertension. 4. Anemia. Follow up with GI. 5. Continue antibiotics. Continue hydration. Avoid nephrotoxins. We will follow. Continue to closely monitor cardiorespiratory status. Thank you for the consult. Job ID: [id number]
[2018-08-27] MEDS: HumaLOG 300 UNITS/3 ML VIAL SC SCH ×3 (08:56→17:38)
[2018-08-27] MEDS: Metoprolol Tartrate 100 MG TAB PO SCH ×2 (08:58→20:23)
[2018-08-27] MEDS: Ferrous Sulfate 325 MG TAB PO SCH (08:58)
--- NOTE | 2018-08-27 12:45 | PRG ---
DATE OF SERVICE: 08/27/2018 SUBJECTIVE: This is a 68-year-old gentleman being seen for acute kidney injury. The patient denied nausea, vomiting, or chest pain. OBJECTIVE: GENERAL: The patient is awake ad alert. VITAL SIGNS: Afebrile, pulse 65, breathing 16, blood pressure 124/54. GENERAL APPEARANCE AND MENTAL STATUS: Fair. HEAD/NECK: Normocephalic. Atraumatic. EYES: EOMI. No deformity. EARS: Clear. No ulcers. NOSE: Intact. No lesions. MOUTH: Clear. No discharge. THROAT: Clear. No exudate. LUNGS: Clear. No crackles. CARDIAC: S1, S2. No rub. ABDOMEN: Benign. Bowel sounds positive. GENITALIA/RECTUM: Trejo absent. BACK/EXTREMITIES: Edema 0+. NEUROLOGICAL: Alert and motor intact. SKIN: LYMPHATICS: LABORATORY STUDIES: Labs showed hemoglobin 6.9. Creatinine 1.9. ASSESSMENT AND PLAN: 1. Acute kidney injury on chronic kidney disease, stable. 2. Hypertension, stable. 3. Anemia, agree with transfusion. No indication for dialysis. We will follow the patient's renal function closely. Job ID: [id number]
--- NOTE | 2018-08-27 14:07 | PRG ---
DATE OF SERVICE: 08/27/2018 SUBJECTIVE: Mr. Goldsmith had four bowel movements overall light brown without any blood today. He has had no abdominal pain. OBJECTIVE: VITAL SIGNS: Temperature 97.8, pulse 20, blood pressure 139/64. GENERAL: He is in no acute distress. Alert and oriented x3. LUNGS: Clear to auscultation bilaterally. HEART: Regular rate and rhythm. ABDOMEN: Obese, nontender, and nondistended. EXTREMITIES: 1+ pitting lower extremity edema. LABORATORY DATA: Hemoglobin was 6.9 today, down from 7.8 yesterday. Creatinine was 1.99, which is continuing to trend down. IMPRESSION: 1. Anemia of acute blood loss. He is having no further overt bleeding, and I think this is still just re-equilibrating. Some anemic could be acute renal failure as well. He will receive a couple of units transfusion today and we can recheck his hemoglobin in the morning. As long as he is responding appropriately to the transfusion, no further GI workup is necessary. 2. Acute renal failure, prerenal, improving. He also has underlying chronic kidney disease. RECOMMENDATIONS: Check post transfusion hemoglobin in the morning. If he responds appropriately, then he should be okay to discharge home from a GI standpoint. Job ID: [id number]
[2018-08-27] MEDS: Lidocaine 5% Patch TD SCH (14:20)
[2018-08-27] MEDS: traMADol HCl 50 MG TAB PO PRN ×2 (14:31→21:13)
--- NOTE | 2018-08-27 15:01 | PDOC.PN ---
- Subjective Encounter Start Date: 08/27/18 Encounter Start Time: 14:59 Subjective: feels well.no dizziness,weakness/no blood AR -: no hematoms -: actually feels good - Objective Resuscitation Status - Order Detail: 08/23/18 23:35 Resuscitation Status Routine Resuscitation Status: FULL: Full Resuscitation Discussed with: patient REAGAN Reviewed: Yes Vital Signs & Weight: Vital Signs (12 hours) Temp Pulse Pulse Resp BP BP BP 08/27/18 12:00 97.8 F 73 20 139/64 08/27/18 11:55 98.9 F 65 20 121/54 L 08/27/18 11:45 97.6 F 73 20 117/56 L 08/27/18 08:00 97.8 F 93 20 140/63 08/27/18 07:27 08/27/18 03:17 98.3 F 76 16 122/58 L Pulse Ox 08/27/18 12:00 08/27/18 11:55 92 L 08/27/18 11:45 92 L 08/27/18 08:00 94 L 08/27/18 07:27 94 L 08/27/18 03:17 94 L Weight Admit Weight 299 lb 8 oz Weight 302 lb 1.6 oz I&O: 08/26/18 08/27/18 08/28/18 06:59 06:59 06:59 Intake Total 6720 650 0 Output Total 450 800 Balance 6270 -150 0 Result Diagrams: 08/27/18 04:36 08/27/18 04:36 Additional Labs: Accuchecks 08/27/18 08/27/18 08/26/18 10:44 06:03 20:00 POC Glucose 317 H 141 H 120 H 08/26/18 16:45 POC Glucose 237 H Microbiology 08/24/18 10:43 Central Line - Right external jugular vein Blood Culture - Preliminary NO GROWTH AT 48 HOURS 08/24/18 10:15 Central Line - Right external jugular vein Blood Culture - Preliminary NO GROWTH AT 48 HOURS 08/24/18 02:57 Venous blood - Right Hand Blood Culture - Preliminary NO GROWTH AT 48 HOURS 08/24/18 02:57 Venous blood - Left Hand Blood Culture - Preliminary NO GROWTH AT 48 HOURS Laboratory Tests 08/23/18 08/23/18 08/24/18 20:46 20:46 01:14 Hgb 7.1 L 8.2 L Creatinine 3.17 H 08/24/18 08/24/18 08/24/18 02:57 02:57 10:07 Hgb 7.0 L 7.6 L Creatinine 3.08 H 08/25/18 08/25/18 08/27/18 12:06 12:06 04:36 Hgb 7.8 L Creatinine 2.51 H 1.99 H 08/27/18 04:36 Hgb 6.9 L Creatinine Phys Exam - Physical Examination Constitutional: NAD HEENT: PERRLA, moist MMs, sclera anicteric, oral pharynx no lesions Neck: no nodes, no JVD, supple, full ROM Respiratory: no wheezing, no rales, no rhonchi, clear to auscultation bilateral Cardiovascular: RRR, no significant murmur, no rub Gastrointestinal: soft, non-tender, no distention, positive bowel sounds Musculoskeletal: no edema, pulses present Neurological: non-focal, normal sensation, moves all 4 limbs Psychiatric: normal affect, A&O x 3 Skin: no rash Dx/Plan (1) GI bleed Code(s): K92.2 - GASTROINTESTINAL HEMORRHAGE, UNSPECIFIED Status: Acute Comment: 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.s/p cauterization.on PPI (2) Blood loss anemia Code(s): D50.0 - IRON DEFICIENCY ANEMIA SECONDARY TO BLOOD LOSS (CHRONIC) Status: Acute Comment: H/H stable (3) TIERNEY (acute kidney injury) Code(s): N17.9 - ACUTE KIDNEY FAILURE, UNSPECIFIED Status: Acute (4) Metabolic acidosis Code(s): E87.2 - ACIDOSIS Status: Acute (5) HTN (hypertension) Code(s): I10 - ESSENTIAL (PRIMARY) HYPERTENSION Status: Chronic (6) DM2 (diabetes mellitus, type 2) Status: Chronic - Plan DVT proph w/SCDs drop in H/h again today but pt asymptomatic .no overt bleed -: will transfuse 2 units prbs and monitor.discussed w NEERAJ Parrish -: likely DC in am if H/H stable -: cont home meds as below.hemodynamically stable * . Review of Systems - Review of Systems Constitutional: negative: fever, chills, sweats, weakness, malaise, other ENT: negative: Ear Pain, Ear Discharge, Nose Pain, Nose Discharge, Nose Congestion, Mouth Pain, Mouth Swelling, Throat Pain, Throat Swelling, Other Respiratory: negative: Cough, Dry, Shortness of Breath, Hemoptysis, SOB with Excertion, Pleuritic Pain, Sputum, Wheezing Cardiovascular: negative: chest pain, palpitations, orthopnea, paroxysmal nocturnal dyspnea, edema, light headedness, other Gastrointestinal: negative: Nausea, Vomiting, Abdominal Pain, Diarrhea, Constipation, Melena, Hematochezia, Other Genitourinary: negative: Dysuria, Frequency, Incontinence, Hematuria, Retention , Other Neurological: negative: Weakness, Numbness, Incoordination, Change in Speech, Confusion, Seizures, Other - Medications/Allergies Allergies/Adverse Reactions: Allergies Allergy/AdvReac Type Severity Reaction Status Date / Time No Known Drug Allergies Allergy Verified 08/23/18 23:03 Medications: Current Medications Cyclobenzaprine HCl (Flexeril) 10 mg PO TID PRN PRN Reason: Muscle Spasm Last Admin: 08/26/18 21:36 Dose: 10 mg Dextrose/Water (Dextrose 50%) 25 gm SLOW IVP PRN PRN PRN Reason: Hypoglycemia Ferrous Sulfate (Feosol) 325 mg PO DAILY [facility] Last Admin: 08/27/18 08:58 Dose: 325 mg Glucagon (Glucagon) 1 mg IM PRN PRN PRN Reason: Hypoglycemia Dextrose/Water (D5w) 1,000 mls @ 0 mls/hr IV .Q0M PRN PRN Reason: Hypoglycemia Insulin Glargine 45 units/ (Miscellaneous Medication) 0.45 mls @ 0 mls/hr SC [facility] Last Admin: 08/26/18 20:18 Dose: 0.45 mls Insulin Human Lispro (Humalog) 0 units SC .BEDTIME SLIDING SC PRN PRN Reason: Bedtime Correctional Scale Last Admin: 08/25/18 21:36 Dose: 5 unit Insulin Human Lispro (Humalog) 0 units SC .AGGRESSIVE SLIDING PRN PRN Reason: Aggressive Correctional Scale Last Admin: 08/27/18 11:59 Dose: 11 unit Insulin Human Lispro (Humalog) 60 units SC TID-WM [facility] Last Admin: 08/27/18 11:53 Dose: 60 units Lidocaine (Lidoderm 5% Patch) 1 patch TD 1300 [facility] Last Admin: 08/27/18 14:20 Dose: 1 patch Metoprolol Tartrate (Lopressor) 100 mg PO BID [facility] Last Admin: 08/27/18 08:58 Dose: 100 mg Miscellaneous Medication (Lidocaine Patch Removal) 1 each TOP 0100 [facility] Last Admin: 08/27/18 01:57 Dose: Not Given Niacin (Niaspan Er) 500 mg PO BID [facility] Last Admin: 08/27/18 08:59 Dose: 500 mg Ondansetron HCl (Zofran) 4 mg IVP Q6H PRN PRN Reason: Nausea/Vomiting Pantoprazole Sodium (Protonix) 40 mg PO DAILY [facility] Last Admin: 08/27/18 08:58 Dose: 40 mg Rosuvastatin Calcium (Crestor) 40 mg PO HS [facility] Last Admin: 08/26/18 20:19 Dose: 40 mg Sodium Chloride (Flush - Normal Saline) 10 ml IVF Q12HR PRN PRN Reason: Saline Flush Tramadol HCl (Ultram) 100 mg PO Q8H PRN PRN Reason: Moderate to Severe Pain (6-10) Last Admin: 08/27/18 14:31 Dose: 100 mg Tramadol HCl (Ultram) 100 mg PO Q8H PRN PRN Reason: Pain Zolpidem Tartrate (Ambien) 5 mg PO HSPRN PRN PRN Reason: Insomnia
[2018-08-27] MEDS: Rosuvastatin 20 MG TAB PO SCH (20:22)
[2018-08-27] MEDS: Insulin Glargine 45 UNITS in Pre-Filled Syringe 1 EACH SC SCH (20:28)
[2018-08-27] MEDS: Cyclobenzaprine 10 MG TAB PO PRN (21:13)
[2018-08-28] MEDS: Lidocaine Patch Removal 1 EACH TOP SCH (01:01)
[2018-08-28 06:02] LABS: Anion Gap 14 mmol/L (10-20); BUN (Urea Nitrogen) 25 mg/dL (8.4-25.7); Calc. Creatinine Clearance 74 mL/min (70-130); Calcium 8.9 mg/dL (7.8-10.44); Carbon Dioxide 23 mmol/L (23-31); Chloride 100 mmol/L (98-107); Estimated GFR-MDRD 37; Glucose 174 mg/dL (80-115); Potassium 3.7 mmol/L (3.5-5.1); Sodium 133 mmol/L (136-145)
[2018-08-28] MEDS: HumaLOG 300 UNITS/3 ML VIAL SC SCH ×2 (09:35→15:07)
[2018-08-28] MEDS: Metoprolol Tartrate 100 MG TAB PO SCH (09:38)
[2018-08-28] MEDS: Ferrous Sulfate 325 MG TAB PO SCH (09:38)
--- NOTE | 2018-08-28 12:49 | PRG ---
DATE OF SERVICE: 08/28/2018 SUBJECTIVE: This is a 68-year-old gentleman being seen for acute kidney injury. The patient denied nausea, vomiting, or chest pain. OBJECTIVE: GENERAL: The patient is awake and alert. VITAL SIGNS: Pulse 73, breathing 16, and blood pressure 136/63. GENERAL APPEARANCE AND MENTAL STATUS: Fair. HEAD/NECK: Normocephalic. Atraumatic. EYES: EOMI. No deformity. EARS: Clear. No ulcers. NOSE: Intact. No lesions. MOUTH: Clear. No discharge. THROAT: Clear. No exudate. LUNGS: Clear. No crackles. CARDIAC: S1, S2. No rub. ABDOMEN: Benign. Bowel sounds positive. GENITALIA/RECTUM: Trejo absent. BACK/EXTREMITIES: Has edema NEUROLOGICAL: Alert and motor intact. SKIN: LYMPHATICS: LABORATORY DATA: Labs show hemoglobin of 6.9. Creatinine 1.8. ASSESSMENT AND PLAN: 1. Acute kidney injury on chronic kidney disease, stable. 2. Hypertension, stable. 3. Anemia, requiring transfusion. 4. Medication based on GFR as appropriate. Job ID: [id number]
--- NOTE | 2018-08-28 14:15 | NM ---
FNuclear medicine GI bleeding exam: 08/28/2018 COMPARISON: None HISTORY: Continued anemia, prior history of GI bleeding TECHNIQUE: Following the intravenous administration of 27.2 mCi technetium 99m labeled RBCs, anterior planar imaging of the abdomen obtained over 90 minutes. FINDINGS: There is no scintigraphic evidence of active GI bleeding. Normal blood pool activity noted. IMPRESSION: No scintigraphic evidence of active GI bleeding.
[2018-08-28] MEDS: Lidocaine 5% Patch TD SCH (14:31)
[2018-08-28 14:40] LABS: Hemoglobin 10.1 g/dL (14.0-18.0)
[2018-08-28] MEDS ORDERED: HumaLOG 300 UNITS/3 ML VIAL SC SCH (15:15)
[2018-08-28 16:27] VITALS: BP 158/70; TEMP 98
--- NOTE | 2018-08-28 19:39 | DIS ---
DATE OF ADMISSION: 08/23/2018 DATE OF DISCHARGE: 08/28/2018 DIAGNOSES AT THE TIME OF DISCHARGE: 1. Acute blood loss. 2. 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 3. Left-sided diverticulosis. 4. Erosive gastritis. 5. Acute kidney injury, improved. 6. Metabolic acidosis, resolved. 7. Hypertension. 8. Diabetes mellitus type 2. CONSULTANTS: 1. Jose Calvo MD, Gastro[facility]. 2. Saundra Yadav MD, [employer]. HOSPITAL COURSE: The patient is a 68-year-old male, who woke up in the morning complaining of black tarry stools. He had similar episode approximately 6 to 7 years ago, had an EGD two months prior to this hospitalization and colonoscopy 2 to 3 years ago, which showed polyps which were removed. This time, he noticed black tarry stools. In the emergency room, he was found to have hemoglobin level at 7.1, felt weak, was transfused with 1 unit of packed red blood cells in the emergency room. His creatinine at the time of ER evaluation was up to 3.17 and BUN was 76. He has chronic kidney disease at the baseline and this was acute kidney injury on the top of chronic problem. At the time of admission, his white count was 16, INR and PT were normal. The patient was started on Zosyn for elevated white count. Concerns for possible infectious process going on in the abdomen. Blood cultures were done, which came back later with no growth. The patient got admitted to the hospital, was seen by Dr. Calvo for gastrointestinal evaluation. He agreed with IV fluid resuscitation and blood transfusion, and follow trend of his creatinine. He underwent upper endoscopy the next day and his proton pump inhibitor started in the emergency room was continued. EGD was done and it showed antral erosion measuring 5 mm, quite shallow but somewhat protruding underneath, and small red spot in the center which was cauterized with good hemostasis confirmed. He did not feel that this was definite bleeding source. Gastric biopsies were done for H pylori to rule out and otherwise, EGD was normal. Next day, he underwent colonoscopy which showed 6 mm vascular ectasia in the cecum which bled when touched with APC probe. This was cauterized with argon plasma coagulation with good hemostasis confirmed. Also, there was moderate left-sided diverticulosis. His hemoglobin was closely watched and it went down to 6.9. The patient was transfused with additional 2 units of packed red blood cells and today level is up to 10.1, improved significantly to 1.83 today from original more than 3. His glycemia is down to 100, although this morning was 313. The patient underwent nuclear medicine scan for the bleeding, which came back negative. Clinically, he is doing well. PHYSICAL EXAMINATION: VITAL SIGNS: His blood pressure is 158/70, pulse is 70, temperature is 98.0, respiratory rate is 16, O2 saturation is 97% on room air. He was seen and examined before his discharge. LUNGS: Clear. HEART: S1 and S2 normal. ABDOMEN: Obese. Bowel sounds are present. EXTREMITIES: 1+ peripheral edema, similar bilateral lower extremities. DISPOSITION: He is discharged home in good condition with recommendation to stay on diabetic diet, 2000 calories ADA. ACTIVITY: As tolerated. MEDICATIONS: At the time of discharge: 1. Metoprolol 100 mg twice a day. 2. Niacin 500 mg twice a day. 3. Ferrous sulfate 65 mg daily. 4. Losartan 100 mg once a day. 5. Omeprazole 40 mg once a day. 6. Furosemide 80 mg twice a day. 7. Rosuvastatin 40 mg at bedtime. 8. Multivitamin 1 a day. 9. Tramadol 100 mg q.8 hours p.r.n. as needed. 10. Insulin aspart 60 units subcutaneously 3 times a day along with Levemir 45 units daily. 11. Allopurinol 150 mg daily. 12. He will stay on aspirin 81 mg once a day for the next 2 weeks, then he will go up to 325 mg of aspirin every day. FOLLOWUP: He will follow up with his primary care physician in [address] Calvo for GI followup in 2 weeks. TIME SPENT: Time spent on this discharge is less than 30 minutes. Job ID: [id number]
--- NOTE | 2018-08-29 09:38 | PQF ---
DREAD AVERY ZBIGNIEW A MD [phone] [facility] [id number] CLINICAL DOCUMENTATION CLARIFICATION FORM: POST DISCHARGE Addendum to original discharge summary date: ____ Late entry note date: __ DATE: 08/29/18 ATTN: Dr. Radford, Please exercise your independent, professional judgment in responding to the clarification form. Clinical indicators are provided on the bottom of this form for your review Please check appropriate box(s): [ x ] Acute on Chronic Renal Failure please specify Stage of CKD (see below) [ ] CKD without ARF/TIERNEY please specify Stage of CKD [ ] ESRD [ ] Other diagnosis [ ] Unable to determine In addition, please specify: Present on Admission (POA): [ x ] Yes [ ] No [ ] Unable to determine National Kidney Foundation Guidelines for CKD Staging Stage I Kidney damage with normal or increased GFR GFR > 90 Stage II Kidney damage with mildly decreased GFR GFR 60-89 Stage III Kidney damage with moderately decreased GFR GFR 30-59 Stage IV Kidney damage with severely decreased GFR GFR 16-29 Stage V Kidney failure GFR<15 ESRD End Stage Renal Disease On dialysis Acute Renal Failure/Acute Kidney Failure defined as: Increases in SCr by (>) 0.3 mg/dl within 48 hours OR- Increases in SCr by (>) 1.5 times baseline, known or presumed to have occurred within the prior 7 days OR- Urine volume < 0.5 ml/kg/hour for 6 hours (KDIGO supplement 2012 for RIFLE/MARIBELL criteria) For continuity of documentation, please document condition throughout progress notes and discharge summary. Thank You. CLINICAL INDICATORS - SIGNS / SYMPTOMS / LABS Acute Kidney Injury on Chronic Kidney disease--08/23 H&P GFR----08/23, 08/28 Labs Edema--08/24 Nephrology consult Metabolic acidosis---08/26 Progress note RISK FACTORS Volume depletion---08/24 Nephrology consult Hypertension---08/23 H&P TREATMENTS: IV fluids--ordered 08/23 Nephrology consult---ordered 08/23 Medication based on GFR---08/24 Progress note Thank you, Karina Olmstead, [facility] 9:35AM (This form is maintained as a part of the permanent medical record) 2015 [employer] All Rights Reserved [email or web address] [phone] MTDD
== END 2018-08-28 17:24 | disposition home or self-care (01) | DRG 378 ==
LOC: ERS 20:35 → ERHOLD 22:24 → 2NO 08-24 19:32
PROVIDERS: ADMIT Internal Medicine; ATTEND Internal Medicine
PROC: 30233N1 Transfusion of Nonautologous Red Blood Cells into Peripheral Vein, Percutaneous Approach (ICD-10-PCS; 2018-08-23)
PROC: 0DB78ZX Excision of Stomach, Pylorus, Via Natural or Artificial Opening Endoscopic, Diagnostic (ICD-10-PCS; principal; 2018-08-24)
PROC: 0W3P8ZZ Control Bleeding in Gastrointestinal Tract, Via Natural or Artificial Opening Endoscopic (ICD-10-PCS; 2018-08-24)
PROC: 0W3P8ZZ Control Bleeding in Gastrointestinal Tract, Via Natural or Artificial Opening Endoscopic (ICD-10-PCS; 2018-08-25)
PROC: 30233N1 Transfusion of Nonautologous Red Blood Cells into Peripheral Vein, Percutaneous Approach (ICD-10-PCS; 2018-08-27)
DX: K31.811 Angiodysplasia of stomach and duodenum with bleeding (principal); N17.9 Acute kidney failure, unspecified; D62 Acute posthemorrhagic anemia; E87.2 Acidosis; E78.5 Hyperlipidemia, unspecified; E11.22 Type 2 diabetes mellitus with diabetic chronic kidney disease; I12.9 Hypertensive chronic kidney disease with stage 1 through stage 4 chronic kidney disease, or unspecified chronic kidney disease; N18.9 Chronic kidney disease, unspecified; I25.10 Atherosclerotic heart disease of native coronary artery without angina pectoris; K57.90 Diverticulosis of intestine, part unspecified, without perforation or abscess without bleeding; K29.60 Other gastritis without bleeding; K25.4 Chronic or unspecified gastric ulcer with hemorrhage; M10.9 Gout, unspecified; Z79.4 Long term (current) use of insulin; Z79.899 Other long term (current) drug therapy; Z79.82 Long term (current) use of aspirin; Z95.1 Presence of aortocoronary bypass graft; Z86.010 Personal history of colon polyps; Z82.49 Family history of ischemic heart disease and other diseases of the circulatory system; Z83.3 Family history of diabetes mellitus
CPT/HCPCS: 36415; 36416; 36430; 74176; 78278; 80048; 80053; 81001; 82728; 83540; 83550; 84484; 85014; 85018; 85025; 85610; 85730; 86850; 86900; 86901; 87040; 88305; 88312; 93005; A9604; C9113; J1825; J2270; J2543; J2704; J3010; J3490; J7050; P9016